=== PATIENT | female | born 1980 | race African-American/Black ===

== ENCOUNTER 2017-03-28 20:35 | Emergency (ER) | payer MEDICAID ==
[~2017-03-28 20:35] MED LIST: ARIP5TAB8; DES150; LOV40 SQ; SERT20OR; WARF10TA21 PO
== END 2017-03-29 03:25 | disposition left against medical advice (07) ==
LOC: ER 20:35
DX: M79.671 Pain in right foot (principal); Z53.21 Procedure and treatment not carried out due to patient leaving prior to being seen by health care provider

== ENCOUNTER 2019-04-13 09:26 | Inpatient (IN) | payer MEDICAID ==
[~2019-04-13] VITALS: Ht 160 cm; Wt 66.8 kg
[~2019-04-13 09:26] MED LIST changes: +ABIL5; -ARIP5TAB8; +DOXYCYCLINE 100 MG in DEXT 5% WATER 100 ML IV SCH
[2019-04-13] MEDS ORDERED: SODIUM CHLORIDE 0.9% 1,000 ML IV ONE ×2 (10:19→16:57)
[2019-04-13] MEDS ORDERED: ONDANSETRON HCL 4MG/2ML INJ IV STA ×2 (10:19→16:57)
[2019-04-13 10:39] LABS: CHLORIDE 104 mEq/L (98-107)
[2019-04-13 10:46] LABS: BASOPHILS % 0.7 % (0.0-2.0); HEMATOCRIT. 27.3 % (36.0-48.0); HEMOGLOBIN. 8.4 g/dL (12.0-16.0); LYMPHOCYTES % 10.5 % (20.0-50.0); MEAN CORPUSCULAR VOLUME 71.8 fL (81.0-99.0); MONOCYTES % 6.5 % (2.0-8.0); NEUTROPHILS % 79.3 % (40.0-76.0); PLATELET 364 x1000/uL (130-400); RED CELL DISTRIBUTION WIDTH 20.3 % (11.6-14.6)
[2019-04-13 10:50] LABS: B-HCG QUANTITATIVE < 1 mIU/mL (<3)
[2019-04-13 11:00] LABS: PARTIAL THROMBOPLASTIN TIME 22.2 sec (23.4-31.0)
[2019-04-13 11:39] LABS: HCG SCREEN NEGATIVE
[2019-04-13] MEDS ORDERED: METOCLOPRAMIDE HCL 10MG/2ML VIAL IV ONE (12:00)
[2019-04-13 12:48] LABS: CLARITY URINE TURBID (CLEAR); COLOR URINE YELLOW (YELLOW); KETONES URINE NEGATIVE (NEGATIVE); LEUKOCYTE ESTERASE URINE 2+ (NEGATIVE); NITRITE URINE NEGATIVE (NEGATIVE); OCCULT BLOOD URINE NEGATIVE (NEGATIVE); PH URINE 8.5 (4.5-8.0); PROTEIN URINE 1+ (NEGATIVE); SPECIFIC GRAVITY URINE 1.028 (1.005-1.030)
[2019-04-13] MEDS ORDERED: CEFTRIAXONE 1 G PREMIX 50 ML IV NR (15:27)
[2019-04-13] MEDS ORDERED: DOXYCYCLINE HYCLATE 100 MG/VIAL IV ONE (16:45)
[2019-04-13] MEDS ORDERED: DOXYCYCLINE 100MG in DEXTROSE 5% WATER 100ML IV ONE (17:38)
[2019-04-13] MEDS ORDERED: ONDANSETRON HCL 4MG/2ML INJ IV ONE (19:45)
[2019-04-13] MEDS ORDERED: SODIUM CHLORIDE 0.45% 1,000 ML IV SCH (22:56)
[2019-04-13] MEDS ORDERED: DOCUSATE SODIUM 100MG CAPSULE PO PRN (23:00)
[2019-04-13] MEDS ORDERED: CLONIDINE 0.1MG TABLET PO PRN (23:00)
[2019-04-13] MEDS ORDERED: IPRATROPIUM/ALBUTEROL 0.5-3(2.5)MG/3ML NEB INH PRN (23:00)
[2019-04-13] MEDS ORDERED: NA PHOS,M-B/NA PHOS,DI-BA ENEMA 118ML PR PRN (23:00)
[2019-04-13] MEDS ORDERED: LORAZEPAM 2MG/ML CPJ IV PRN (23:00)
[2019-04-13] MEDS ORDERED: DIPHENHYDRAMINE 50MG/ML VIAL IV PRN (23:00)
[2019-04-13] MEDS ORDERED: ACETAMINOPHEN 325MG TABLET PO PRN (23:00)
[2019-04-13] MEDS ORDERED: GUAIFENESIN 200MG/10ML SUGAR FREE UDC PO PRN (23:00)
[2019-04-13] MEDS ORDERED: HYDRALAZINE 20MG/ML VIAL IV PRN (23:00)
[2019-04-13] MEDS ORDERED: MAGNESIUM/ALUMINUM HYDROXIDE/SIMETHICONE 30ML UDC PO PRN (23:00)
[2019-04-13] MEDS ORDERED: METOCLOPRAMIDE HCL 10MG/2ML VIAL IV PRN (23:00)
[2019-04-13] MEDS ORDERED: HYDROCODONE/ACETAMINOPHEN 10/325MG TABLET PO PRN (23:14)
[2019-04-13] MEDS ORDERED: DEXT 5%/0.45% NACL 1000ML 1,000 ML IV SCH (23:30)
[2019-04-13] MEDS ORDERED: HYDRALAZINE 10 MG in SODIUM CHLORIDE 0.9% 49.5 ML IV PRN (23:30)
[2019-04-14] VITALS: BP 117/73
[2019-04-14] MEDS: ONDANSETRON HCL 4MG/2ML INJ IV PRN ×3 (00:09→19:48)
[2019-04-14 04:00] VITALS: BP 125/76
[2019-04-14 07:08] LABS: PROTHROMBIN TIME 10.1 sec (9.6-11.0)
[2019-04-14 07:22] LABS: BASOPHILS % 1.1 % (0.0-2.0); EOSINOPHILS % 0.4 % (0.0-5.0); HEMATOCRIT. 24.9 % (36.0-48.0); HEMOGLOBIN. 7.6 g/dL (12.0-16.0); LYMPHOCYTES % 25.8 % (20.0-50.0); MEAN CORPUSCULAR VOLUME 71.9 fL (81.0-99.0); MEAN PLATELET VOLUME 8.2 fl (7.4-10.4); MONOCYTES % 14.2 % (2.0-8.0); NEUTROPHILS % 58.5 % (40.0-76.0); PLATELET 323 x1000/uL (130-400); RED BLOOD CELL COUNT 3.47 mill/uL (4.2-5.4); RED CELL DISTRIBUTION WIDTH 20.2 % (11.6-14.6)
[2019-04-14 07:47] LABS: CHLORIDE 106 mEq/L (98-107)
[2019-04-14 08:00] VITALS: BP 129/69
[2019-04-14 08:04] LABS: LDL CHOLESTEROL 73 mg/dL (5-100)
[2019-04-14 08:06] LABS: HDL CHOLESTEROL 107 mg/dL (40-59)
[2019-04-14] MEDS: DOXYCYCLINE 100 MG in DEXT 5% WATER 100 ML IV SCH ×2 (09:52→20:24)
[2019-04-14 12:25] VITALS: BP 121/79
[2019-04-14] MEDS: HYDROMORPHONE HCL/PF 2MG/ML CPJ IV PRN ×2 (12:30→20:52)
[2019-04-14] MEDS: SODIUM CHLORIDE 0.9% INJ 3ML FLUSH IVF SCH ×2 (14:00→21:04)
[2019-04-14 15:46] VITALS: BP 122/74
[2019-04-14] MEDS ORDERED: CEFTRIAXONE 1 G PREMIX 50 ML IV SCH (16:00)
[2019-04-14 20:00] VITALS: BP 120/66
[2019-04-15] VITALS: BP 94/49
[2019-04-15] MEDS: ONDANSETRON HCL 4MG/2ML INJ IV PRN (03:12)
[2019-04-15 04:00] VITALS: BP 116/59
[2019-04-15] MEDS: SODIUM CHLORIDE 0.9% INJ 3ML FLUSH IVF SCH (06:17)
[2019-04-15 08:00] VITALS: BP 111/57
[2019-04-15 09:13] VITALS: BP 154/73
[2019-04-17 04:21] LABS: CHLAMYDIA TRACHOMATIS NAA Negative (Negative); NEISSERIA GONORRHOEAE NAA Negative (Negative)
[2019-04-17 04:21] LABS: CHLAMYDIA TRACHOMATIS NAA Negative (Negative); NEISSERIA GONORRHOEAE NAA Negative (Negative)
== END 2019-04-15 10:00 | disposition home or self-care (01) | DRG 531 ==
LOC: ER 09:38 → 6EST 16:50 → EDBEDREQ 16:54 → ENRESERV 21:16
PROVIDERS: ADMIT Internal Medicine; ATTEND Internal Medicine
DX: N73.0 Acute parametritis and pelvic cellulitis (principal); K85.90 Acute pancreatitis without necrosis or infection, unspecified; D68.61 Antiphospholipid syndrome; D64.9 Anemia, unspecified; D25.9 Leiomyoma of uterus, unspecified; N39.0 Urinary tract infection, site not specified; Z79.01 Long term (current) use of anticoagulants; Z86.711 Personal history of pulmonary embolism; Z87.440 Personal history of urinary (tract) infections; Z86.718 Personal history of other venous thrombosis and embolism; Z79.899 Other long term (current) drug therapy
CPT/HCPCS: 36415; 76700; 76830; 76856; 80061; 83880; 84484; 84702; 84703; 86850; 86900; 87210; 87491; 87591; 93005; 93970; 99285; C1893; J0696; J1170; J2405; J2765; J3490; J7030; J7060